=== PATIENT | female | born 1985 | race Caucasian/White ===

== ENCOUNTER 2020-08-09 09:35 | Outpatient (CLI) | payer BC | END 2020-08-09 09:36 | disposition home or self-care (01) | LOC: COV 09:35 | PROVIDERS: ATTEND Family Medicine | DX: R05 Cough (principal); Z20.828 Contact with and (suspected) exposure to other viral communicable diseases; R53.83 Other fatigue; R09.81 Nasal congestion; J02.9 Acute pharyngitis, unspecified ==

== ENCOUNTER 2021-07-18 16:31 | Outpatient (CLI) | payer BC | END 2021-07-18 16:32 | disposition home or self-care (01) | LOC: COV 16:31 | PROVIDERS: ATTEND Family Medicine | DX: R05 Cough (principal); R07.0 Pain in throat; J34.89 Other specified disorders of nose and nasal sinuses; Z20.822 Contact with and (suspected) exposure to COVID-19 ==